=== PATIENT | female | born 1960 | race Caucasian/White ===

== ENCOUNTER 2017-01-11 06:02 | Inpatient (IN) | payer OTHER ==
[~2017-01-11] VITALS: Ht 162.6 cm; Wt 103.0 kg
[~2017-01-11 06:02] MED LIST: GLIP10TA13 PO; HYDR-3138 PO; LISI40TA PO; RISP2TAB3 PO; SERT50TA5 PO; SITA1TBM4 PO
[2017-01-11] MEDS ORDERED: BUPIVACAINE/PF-EPI 0.5% 1:200K ONE (07:02)
[2017-01-11 07:05] VITALS: BP 116/82
[2017-01-11] MEDS ORDERED: LACTATED RINGERS 1,000 ML IV SCH (07:09)
[2017-01-11] MEDS ORDERED: ALPR0.254 PO (07:12)
[2017-01-11] MEDS ORDERED: FENTANYL PF 250 MCG/5ML ONE (07:12)
[2017-01-11] MEDS ORDERED: SUCCINYLCHOLINE 20 MG/ML, 10ML ONE (07:27)
[2017-01-11] MEDS ORDERED: GLYCOPYRROLATE 0.2MG/1ML ONE (07:27)
[2017-01-11] MEDS ORDERED: NEOSTIGMINE 1 MG/ML, 10ML ONE (07:27)
[2017-01-11] MEDS ORDERED: ROCURONIUM 10 MG/ML ONE (07:27)
[2017-01-11] MEDS ORDERED: PROPOFOL 10 MG/ML, 20ML ONE (07:27)
[2017-01-11] MEDS ORDERED: KETOROLAC 30 MG/1 ML ONE (07:27)
[2017-01-11] MEDS ORDERED: CEFAZOLIN 1,000 MG ONE (07:27)
[2017-01-11] MEDS ORDERED: ONDANSETRON 2MG/ML, 2ML ONE ×2 (07:27→10:57)
[2017-01-11] MEDS ORDERED: LABETALOL 5MG/ML, 20ML IV PRN (08:00)
[2017-01-11] MEDS ORDERED: METOCLOPRAMIDE 5 MG/ML, 2ML IV PRN (08:00)
[2017-01-11] MEDS ORDERED: ONDANSETRON 2MG/ML, 2ML IVPush PRN (08:00)
[2017-01-11] MEDS ORDERED: hydrALAzine 20 MG/ML, 1ML IV PRN (08:00)
[2017-01-11] MEDS ORDERED: HYDROmorphone 1 MG/ML, 1ML IV PRN (08:00)
[2017-01-11] MEDS: ACETAMINOPHEN 325 MG TABLET PO PRN ×2 (10:30→10:35)
[2017-01-11] MEDS: FENTANYL PF 100 MCG/2ML IV PRN ×2 (10:30→11:00)
[2017-01-11] MEDS ORDERED: ACETAMINOPHEN 650 MG/20.3 ML UDC ONE (10:31)
[2017-01-11] MEDS ORDERED: ACETAMINOPHEN 325 MG TABLET ONE (10:31)
[2017-01-11] MEDS ORDERED: OXYcodone 5 MG/5 ML ORAL.SOL UDC ONE ×2 (10:31→11:12)
[2017-01-11] MEDS ORDERED: FENTANYL PF 100 MCG/2ML ONE (10:31)
[2017-01-11] MEDS: OXYcodone 5 MG/5 ML ORAL.SOL UDC PO PRN ×2 (10:35→11:13)
[2017-01-11] MEDS ORDERED: INSULIN SINGLE DOSE, ER SQ-INSULIN ONE (10:55)
[2017-01-11] MEDS ORDERED: INSULIN REGULAR 100 UNITS/ML, 3ML VIAL SQ-INSULIN ONE (11:30)
[2017-01-11 12:40] VITALS: BP 143/97
[2017-01-11] MEDS ORDERED: PHENOL THROAT SPRAY BOTTLE MM PRN (13:30)
[2017-01-11] MEDS ORDERED: ONDANSETRON 2MG/ML, 2ML IV PRN ×2 (13:30→14:49)
[2017-01-11] MEDS ORDERED: DIPHENHYDRAMINE 25 MG CAPSULE PO PRN (13:30)
[2017-01-11] MEDS ORDERED: LORazepam 2 MG/ML, 1ML IV PRN (13:30)
[2017-01-11] MEDS ORDERED: TEMAZEPAM 15 MG CAPSULE PO PRN (13:30)
[2017-01-11] MEDS ORDERED: LACTATED RINGERS 500 ML IVBOLUS PRN (13:30)
[2017-01-11] MEDS ORDERED: ENOXAPARIN 30 MG/0.3 ML SQ SCH (13:30)
[2017-01-11] MEDS: SERTRALINE 50MG TABLET PO SCH (14:35)
[2017-01-11] MEDS: POTASSIUM CHLORIDE 20 MEQ in LACTATED RINGERS 1,000 ML IV SCH (15:04)
[2017-01-11] MEDS: INSULIN ASPART 100 UNITS/ML, 3ML PEN LOW DOSE SS SQ-INSULIN SCH ×2 (17:30→21:07)
[2017-01-11 20:03] VITALS: BP 162/98
[2017-01-11] MEDS ORDERED: RISPERIDONE 2 MG TABLET PO SCH (21:00)
[2017-01-11] MEDS: DIPHENHYDRAMINE 50 MG/ML, 1ML IV PRN (22:01)
[2017-01-11] MEDS: ENOXAPARIN 30 MG/0.3 ML SQ SCH (22:01)
[2017-01-12] MEDS: POTASSIUM CHLORIDE 20 MEQ in LACTATED RINGERS 1,000 ML IV SCH ×3 (00:25→16:35)
[2017-01-12 02:51] VITALS: BP 149/94
[2017-01-12] MEDS: HYDROcodone/APAP 7.5-325MG/15ML UDC PO PRN ×4 (03:48→16:34)
[2017-01-12 05:56] LABS: HEMOGLOBIN 12.1 g/dL (11.7-16.4)
[2017-01-12 06:06] LABS: BLOOD UREA NITROGEN 10 mg/dL (7-18)
[2017-01-12] MEDS: DIPHENHYDRAMINE 50 MG/ML, 1ML IV PRN (06:12)
[2017-01-12 08:15] VITALS: BP 148/95
[2017-01-12] MEDS ORDERED: LISINOPRIL 20 MG TABLET PO SCH (09:00)
[2017-01-12] MEDS: SERTRALINE 50MG TABLET PO SCH (09:54)
[2017-01-12] MEDS: INSULIN ASPART 100 UNITS/ML, 3ML PEN LOW DOSE SS SQ-INSULIN SCH ×3 (09:54→16:34)
[2017-01-12] MEDS: ENOXAPARIN 30 MG/0.3 ML SQ SCH (09:57)
[2017-01-12 15:48] VITALS: BP 140/92
[2017-01-12 16:48] VITALS: BP 149/88
== END 2017-01-12 17:57 | disposition home or self-care (01) | DRG 620 ==
LOC: EDBD → ORIP 06:02 → 4NOR 11:45
PROVIDERS: ADMIT Surgery; ATTEND Surgery
PROC: 0D164ZA Bypass Stomach to Jejunum, Percutaneous Endoscopic Approach (ICD-10-PCS; principal; 2017-01-11 07:30)
DX: E66.01 Morbid (severe) obesity due to excess calories (principal); E23.2 Diabetes insipidus; Z68.39 Body mass index [BMI] 39.0-39.9, adult; K21.9 Gastro-esophageal reflux disease without esophagitis; I10 Essential (primary) hypertension; E78.00 Pure hypercholesterolemia, unspecified; E88.81 Metabolic syndrome and other insulin resistance; E11.9 Type 2 diabetes mellitus without complications; Z90.6 Acquired absence of other parts of urinary tract; Z88.1 Allergy status to other antibiotic agents; Z88.2 Allergy status to sulfonamides; Z87.891 Personal history of nicotine dependence
CPT/HCPCS: 36415; 80048; 82040; 82962; 85025; C1729; J0690; J1650; J1815; J1885; J2270; J2405; J2704; J2710; J3010; J3480; J3490; J0330; J1200; J2060; J7120

== ENCOUNTER → 2017-06-12 | Outpatient (CLI) | payer OTHER ==
[~2017-06-12] MED LIST changes: +ALPR0.254 PO
== END | disposition home or self-care (01) ==
LOC: CFH 10:30
PROVIDERS: ATTEND Physician Assistant
DX: N83.202 Unspecified ovarian cyst, left side (principal); R93.8 Abnormal findings on diagnostic imaging of other specified body structures
CPT/HCPCS: 76830

== ENCOUNTER 2021-03-05 17:06 | Emergency (ER) | payer OTHER ==
[~2021-03-05] VITALS: Ht 160 cm; Wt 75.0 kg
[~2021-03-05 17:06] MED LIST changes: -HYDR-3138 PO; +HYDR-3237 PO; -LISI40TA PO; +LISI40TA9 PO; -RISP2TAB3 PO; +RISP2TAB80 PO; +SERT50TA28 PO; -SERT50TA5 PO
[2021-03-05 17:19] VITALS: BP 96/59
--- NOTE | 2021-03-05 17:28 | NUR ---
PT BIB EMS FOR ETOH. PT FOUND UNRESPONSIVE AT A [facility] IN [place]. PER EMS THEY FOUND A HALF CONSUMED BOTTLE OF PEACH VODKA ON THE PT. PT NOT ANSWERING ALL QUESTIONS APPROPRIATELY. PT A&O TO PERSON AND PLACE. WHEN ASKED FOR ORAL TEMP PT REFUSED. PT STATES "I DON'T FEEL GOOD. I WANT TO GO HOME". PT PLACED ON HER SIDE, ALL RAILS UP, CALL LIGHT WITHIN REACH. PT PLACED ON CARD MONITOR, SPO2, AND BLOOD PRESSURE. PT PLACED ON 2 LPM O2 VIA NC DUE TO ROOM AIR SPO2 OF 88%.
[2021-03-05] MEDS ORDERED: SODIUM CHLORIDE FLUSH 10ML SYR IVF ONE (18:30)
[2021-03-05] MEDS ORDERED: SODIUM CHLORIDE 0.9% 1,000ML IVBOLUS ONE (18:30)
--- NOTE | 2021-03-05 18:50 | NUR ---
PT FOUND SITTING IN [facility], BELLIGER[place] AND ANGRY WITH FOR BEING IN THE ER. PT STATES SHE NEEDS TO GO TO THE BATHROOM, PT AMBULATED TO THE RESTROOM, BEFORE WE ARE ALLOWED TO START AND IV FLUIDS. PT AMBULATED BACK TO THE ROOM AND NOW STATES SHE IS LEAVING. PT ASKED IF SHE WANTS TO LEAVE AMA, AND SHE STATES YES. PT ADVISED IT WOULD BE IN HER BEST INTEREST TO RECEIVED THE TREATMENT NEEDED AND THE IV FLUIDS. PT REFUSED AGAIN. AT THIS TIME, PT GOT WEAK AND COULDN'T STAND ON HER FEET AND WAS ASSISTED TO A LYING POSITION ON THE GURNEY. PT RESPONDED AND SAYS SHE FELT LIGHT HEADED. MADE AWARE AND ANOTHER IV ORDERED ALONG WITH IVF. PT HAS TAKEN OUT HER INITIAL IV FROM THE EMS. PT ON COMPLETE CR MONITOR AND O2 SATS AND BP INTACT AT 102/58. SIDERAILS UP X2, AND AT BEDSIDE WITH PT, AND CALL LIGHT WITHIN REACH.
--- NOTE | 2021-03-05 19:15 | NUR ---
ENTERED ROOM TO START IV AND TO START IVF AND PT IS GONE AND THE IS GONE FROM THE ROOM. NO PERSONAL BELONGINGS IN ROOM EITHER. ADVISED THE DENTAL NURSE AND ASKED IF THEY HAD SEEN THE PT LEAVE OR WALKING IN THE HALLS, AND THE DENTAL NURSE STATES THEY SAW THE PT AND HER LEAVE OUT OF THE AMBULANCE BAY. PT HAD SIGNED AMA PAPERS INITIALLY WHEN SHE FIRST WANTED TO LEAVE, AND PAPERS FILED WITH CHART.
== END 2021-03-05 19:46 | disposition left against medical advice (07) ==
LOC: ED 18:31
DX: F10.220 Alcohol dependence with intoxication, uncomplicated (principal); F17.200 Nicotine dependence, unspecified, uncomplicated; Y90.0 Blood alcohol level of less than 20 mg/100 ml
CPT/HCPCS: 82962; 99283